=== PATIENT | female | born 1985 | race Caucasian/White ===

== ENCOUNTER 2018-04-22 12:32 | Emergency (ER) | payer MEDICAID, OTHER ==
[~2018-04-22] VITALS: Ht 162.6 cm; Wt 68.0 kg
[2018-04-22 12:32] VITALS: BP 72/47
[2018-04-22] MEDS ORDERED: IPRATROPIUM 0.02% 0.5 MG/2.5 ML NEBU INH ONE (14:15)
[2018-04-22] MEDS: ALBUTEROL 0.083% 2.5 MG/3 ML NEBU INH ONE (14:32)
[2018-04-22] MEDS: predniSONE 20 MG TAB PO ONE (14:41)
[2018-04-22] MEDS: ACETAMINOPHEN EXTRA STRENGTH 500 MG TAB PO ONE (14:41)
[2018-04-22 15:51] VITALS: BP 128/79
== END 2018-04-22 15:52 | disposition home or self-care (01) ==
LOC: MED 12:32
DX: J06.9 Acute upper respiratory infection, unspecified (principal); F17.210 Nicotine dependence, cigarettes, uncomplicated; E16.2 Hypoglycemia, unspecified; Z88.2 Allergy status to sulfonamides
CPT/HCPCS: 71046; 81002; 81025; 93005; 94640; 94760; 99284; J7512; J7613

== ENCOUNTER 2018-04-25 14:23 | Emergency (ER) | payer MEDICAID ==
[~2018-04-25] VITALS: Ht 162.6 cm; Wt 68.0 kg
[2018-04-25 14:29] VITALS: BP 126/57
--- NOTE | 2018-04-25 14:37 | NUR ---
Note undone in EDM - 04/25/18 at 1451 by MED1 ALYSSA GUSTAFSON C/O PRODUCTIVE COUGH, OLIVO, UPPER CHEST PAIN RADIATING TO THE MUPPER BACK; WAS SEEN ON 04/22/2018 FOR UPPER RESPIRATORY INFECTION.DENIES N/V/D; SKIN IS PINK/WARM/DRY; AAOX4 WITH EVEN AND STEADY GAIT; LUNGS CLEAR BL; PATIENT STATES PAIN OF 8/10 AT THIS TIME. PATIENT POSITIONED FOR COMFORT; HOB ELEVATED; BEDRAILS UP X2; BED DOWN. ER MADE AWARE OF PT STATUS.
--- NOTE | 2018-04-25 14:37 | NUR ---
32/F BIB BOYFRIEND C/O PRODUCTIVE COUGH, OLIVO, UPPER CHEST PAIN RADIATING TO THE UPPER BACK; WAS SEEN ON 04/22/2018 FOR UPPER RESPIRATORY INFECTION.DENIES N/V/D; SKIN IS PINK/WARM/DRY; AAOX4 WITH EVEN AND STEADY GAIT; LUNGS CLEAR BL; PATIENT STATES PAIN OF 8/10 AT THIS TIME. PATIENT POSITIONED FOR COMFORT; HOB ELEVATED; BEDRAILS UP X2; BED DOWN. ER MD MADE AWARE OF PT STATUS.
--- NOTE | 2018-04-25 14:39 | NUR ---
X RAY AT BEDSIDE
--- NOTE | 2018-04-25 15:28 | NUR ---
Patient being evaluated by DR DERAS at bedside.
[2018-04-25] MEDS ORDERED: NACL 0.9% 1,000 ML IV ONE (15:35)
[2018-04-25] MEDS ORDERED: KETOROLAC 30 MG/ML VIAL IVP ONE (15:35)
[2018-04-25 16:35] VITALS: BP 123/4
--- NOTE | 2018-04-25 16:35 | NUR ---
Patient discharged with v/s stable. Written and verbal after care instructions given and explained. Patient alert, oriented and verbalized understanding of instructions. Ambulatory with steady gait. All questions addressed prior to discharge. ID band removed. Patient advised to follow up with PMD. Rx of motrin, prednisione, norco given. Patient educated on indication of medication including possible reaction and side effects. Opportunity to ask questions provided and answered.
== END 2018-04-25 16:35 | disposition home or self-care (01) ==
LOC: MED 14:23
DX: J11.1 Influenza due to unidentified influenza virus with other respiratory manifestations (principal); F17.200 Nicotine dependence, unspecified, uncomplicated
CPT/HCPCS: 71045; 96374; 99284; J1885; J7030; Q0092

== ENCOUNTER 2018-05-11 15:50 | Emergency (ER) | payer MEDICAID ==
[~2018-05-11] VITALS: Ht 162.6 cm; Wt 70.5 kg
[2018-05-11 15:56] VITALS: BP 103/75
[2018-05-11] MEDS ORDERED: KETOROLAC 60 MG/2 ML VIAL IM ONE (16:35)
[2018-05-11] MEDS ORDERED: LIDOCAINE 1% ***ER ONLY *** 10 MG/ML VIAL INJ ONE (16:35)
[2018-05-11] MEDS ORDERED: LIDOCAINE 2% 1000 MG/50 ML VIAL INJ ONE (16:45)
[2018-05-11 18:08] VITALS: BP 103/75
== END 2018-05-11 18:09 | disposition home or self-care (01) ==
LOC: MED 15:50
DX: L60.0 Ingrowing nail (principal); F17.200 Nicotine dependence, unspecified, uncomplicated; Z88.2 Allergy status to sulfonamides
CPT/HCPCS: 11730; 96372; 99284; J1885; J2001; 11750

== ENCOUNTER 2018-05-15 14:04 | Emergency (ER) | payer MEDICAID ==
[~2018-05-15] VITALS: Ht 162.6 cm; Wt 70.3 kg
[2018-05-15 14:20] VITALS: BP 104/69
[2018-05-15] MEDS ORDERED: fentaNYL 0.05 MG/ML VIAL IM ONE (14:50)
[2018-05-15] MEDS ORDERED: diphenhydrAMINE 50 MG CAP PO ONE (14:50)
[2018-05-15 16:42] VITALS: BP 104/69
== END 2018-05-15 16:40 | disposition home or self-care (01) ==
LOC: MED 14:04
DX: F07.81 Postconcussional syndrome (principal); M79.10 Myalgia, unspecified site; V03.99XA Pedestrian with other conveyance injured in collision with car, pick-up truck or van, unspecified whether traffic or nontraffic accident, initial encounter; Y93.89 Activity, other specified; Y92.89 Other specified places as the place of occurrence of the external cause; Y99.8 Other external cause status
CPT/HCPCS: 96372; 99283; J3010; Q0163

== ENCOUNTER 2018-05-22 15:00 | Emergency (ER) | payer MEDICAID ==
[~2018-05-22] VITALS: Ht 162.6 cm; Wt 69.9 kg
[2018-05-22 15:10] VITALS: BP 129/81
[2018-05-22] MEDS ORDERED: LIDOCAINE 1% 500 MG/50 ML VIAL INJ SCH (17:35)
[2018-05-22] MEDS ORDERED: KETOROLAC 60 MG/2 ML VIAL IM ONE (17:35)
[2018-05-22 19:01] VITALS: BP 125/75
== END 2018-05-22 19:05 | disposition home or self-care (01) ==
LOC: MED 15:00
DX: S16.1XXA Strain of muscle, fascia and tendon at neck level, initial encounter (principal); S79.911A Unspecified injury of right hip, initial encounter; F17.210 Nicotine dependence, cigarettes, uncomplicated; Z88.2 Allergy status to sulfonamides; Z88.6 Allergy status to analgesic agent; Z88.5 Allergy status to narcotic agent; X58.XXXA Exposure to other specified factors, initial encounter; Y93.89 Activity, other specified; Y92.89 Other specified places as the place of occurrence of the external cause; Y99.8 Other external cause status
CPT/HCPCS: 20552; 81002; 81025; 96372; 99284; J1885; J2001

== ENCOUNTER 2018-06-03 10:00 | Emergency (ER) | payer MEDICAID, OTHER ==
[~2018-06-03] VITALS: Ht 162.6 cm; Wt 70.3 kg
[2018-06-03 10:04] VITALS: BP 125/53
--- NOTE | 2018-06-03 10:09 | NUR ---
PT AMBULATES TO BED 9
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
--- NOTE | 2018-06-03 10:47 | NUR ---
Patient being evaluated by physician at bedside.
[2018-06-03] MEDS ORDERED: KETOROLAC 60 MG/2 ML VIAL IM ONE (10:55)
[2018-06-03] MEDS ORDERED: LORazepam 2 MG/ML VIAL IM ONE (10:55)
[2018-06-03 11:23] VITALS: BP 125/53
[2018-06-03 11:40] LABS: APPEARANCE,URINE CLEAR (CLEAR); BLOOD, URINE MODERATE (NEGATIVE); COLOR,URINE YELLOW (YELLOW); UGLUCOSE NEGATIVE (NEGATIVE)
[2018-06-03 11:41] LABS: BILIRUBIN,URINE NEGATIVE (NEGATIVE); LEUKOCYTE ESTERASE ,URINE NEGATIVE (NEGATIVE); NITRITE, URINE NEGATIVE (NEGATIVE)
[2018-06-03 11:43] LABS: BARBITURATE, URINE NEG. ng/ml (NEG <=200); BENZODIAZEPINE, URINE NEG. ng/mL (NEG <=200); CANNABINOID, URINE NEG. ng/mL (NEG <=50); COCAINE, URINE NEG. ng/mL (NEG <=300); OPIATE, URINE NEG. ng/mL (NEG <=2000); PHENCYCLIDINE SCREEN,URINE NEG. ng/mL (NEG <=25)
[2018-06-03 11:53] LABS: RBC,URINE 3-10 (FEW) /HPF (0-5); WBC,URINE 0-5 (RARE) /HPF (0-5)
== END 2018-06-03 11:15 | disposition home or self-care (01) ==
LOC: MED 10:00
DX: G89.29 Other chronic pain (principal); S33.5XXA Sprain of ligaments of lumbar spine, initial encounter; Z88.6 Allergy status to analgesic agent; Z88.5 Allergy status to narcotic agent; Z88.2 Allergy status to sulfonamides; Z90.710 Acquired absence of both cervix and uterus; V09.9XXA Pedestrian injured in unspecified transport accident, initial encounter; Y93.89 Activity, other specified; Y92.89 Other specified places as the place of occurrence of the external cause; Y99.8 Other external cause status
CPT/HCPCS: 80305; 81001; 87086; 87186; 96372; 99284; J1885; J2060

== ENCOUNTER 2018-07-05 11:18 | Emergency (ER) | payer OTHER ==
[~2018-07-05] VITALS: Ht 160 cm; Wt 70.3 kg
[2018-07-05 11:24] VITALS: BP 126/62
--- NOTE | 2018-07-05 11:31 | NUR ---
PT AMBULATES TO BED 12
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
--- NOTE | 2018-07-05 12:10 | NUR ---
Patient being evaluated by physician at bedside.
[2018-07-05] MEDS ORDERED: KETOROLAC 60 MG/2 ML VIAL IM ONE (12:15)
--- NOTE | 2018-07-05 12:15 | NUR ---
Female Audit Partner accompanied female patient for Pelvic Exam.
[2018-07-05 12:41] VITALS: BP 117/57
--- NOTE | 2018-07-05 12:41 | NUR ---
Patient discharged with v/s stable. Written and verbal after care instructions given and explained. Patient alert, oriented and verbalized understanding of instructions. Ambulatory with steady gait. All questions addressed prior to discharge. ID band removed. Patient advised to follow up with PMD. Rx of Motrine given. Patient educated on indication of medication including possible reaction and side effects. Opportunity to ask questions provided and answered.
== END 2018-07-05 12:41 | disposition home or self-care (01) ==
LOC: MED 11:18
DX: S30.814A Abrasion of vagina and vulva, initial encounter (principal); Z88.2 Allergy status to sulfonamides; Z88.6 Allergy status to analgesic agent; Z88.5 Allergy status to narcotic agent; X58.XXXA Exposure to other specified factors, initial encounter; Y93.89 Activity, other specified; Y92.89 Other specified places as the place of occurrence of the external cause; Y99.8 Other external cause status
CPT/HCPCS: 81002; 81025; 96372; 99283; J1885

== ENCOUNTER 2018-07-22 11:18 | Emergency (ER) | payer OTHER ==
[~2018-07-22] VITALS: Ht 160 cm; Wt 70.0 kg
[2018-07-22 11:29] VITALS: BP 123/70
[2018-07-22] MEDS ORDERED: NEOMYCIN/POLYMYXIN/BACITRACIN 0.9 GM/1 PKT TP ONE (13:05)
[2018-07-22] MEDS ORDERED: PROMETHAZINE 25 MG/ML VIAL IM ONE (13:05)
[2018-07-22] MEDS ORDERED: MORPHINE SULFATE 2 MG/ML SYR IM ONE (13:05)
[2018-07-22] MEDS ORDERED: MORPHINE SULFATE 4 MG/ML SYR ONE (13:17)
[2018-07-22 13:35] VITALS: BP 120/68
== END 2018-07-22 13:35 | disposition home or self-care (01) ==
LOC: MED 11:18
DX: T21.29XA Burn of second degree of other site of trunk, initial encounter (principal); Z88.2 Allergy status to sulfonamides; X58.XXXA Exposure to other specified factors, initial encounter; Y93.89 Activity, other specified; Y92.89 Other specified places as the place of occurrence of the external cause; Y99.8 Other external cause status
CPT/HCPCS: 16020; 87070; 87186; 96372; 99284; J2270; J2550; 87075; 87205